=== PATIENT | male | born 1995 | race Hispanic/Latino ===

== ENCOUNTER 2018-03-21 04:18 | Emergency (ER) | payer MEDICAID ==
--- NOTE | 2018-03-21 04:53 | ED PDOC ---
Arrival/HPI - General Chief Complaint: Substance Abuse Time Seen by Provider: 03/21/18 04:19 Historian: Patient - History of Present Illness Narrative History of Present Illness (Text): 03/21/18 04:53 Ritesh Acevedo is a 22 year old male, whose past medical history includes substance abuse, who presents to the Emergency department requesting psychiatric evaluation. Patient states he came to the ER for "psych reasons" but will not specify upon further questioning. Patient denies any fever, chills , chest pain, shortness of breath, nausea, vomiting, diarrhea, urinary symptoms , back pain, neck pain, headache, dizziness, or any other complaints. Time/Duration: Other (tonight) Symptom Onset: Gradual Symptom Course: Unchanged Activities at Onset: Light Past Medical History - Provider Review Nursing Documentation Reviewed: Yes - Cardiac Hx Cardiac Disorders: No - Pulmonary Hx Respiratory Disorders: No - Neurological Hx Neurological Disorder: No - HEENT Hx HEENT Disorder: No - Renal Hx Renal Disorder: No - Endocrine/Metabolic Hx Endocrine Disorders: No - Hematological/Oncological Hx Blood Disorders: No - Integumentary Hx Dermatological Disorder: No - Musculoskeletal/Rheumatological Hx Musculoskeletal Disorders: No - Gastrointestinal Hx Gastrointestinal Disorders: No - Genitourinary/Gynecological Hx Genitourinary Disorders: No - Psychiatric Hx Psychophysiologic Disorder: Yes Hx Substance Use: Yes (daily) Family/Social History - Physician Review Nursing Documentation Reviewed: Yes Family/Social History: Unknown Family HX Smoking Status: Heavy Smoker > 10 Cigarettes Daily Hx Alcohol Use: No Hx Substance Use: Yes (daily) Substance used: heroin Allergies/Home Meds Allergies/Adverse Reactions: Allergies No Known Allergies Allergy (Verified 03/21/18 05:46) Home Medications: Home Meds Medication Instructions Recorded Confirmed Unobtainable 03/21/18 03/21/18 Review of Systems - Physician Review All systems were reviewed & negative as marked: Yes - Review of Systems Constitutional: Normal. absent: Fevers Eyes: Normal ENT: Normal Respiratory: Normal. absent: SOB, Cough Cardiovascular: Normal. absent: Chest Pain Gastrointestinal: Normal. absent: Abdominal Pain, Diarrhea, Nausea, Vomiting Genitourinary Male: Normal. absent: Dysuria, Frequency, Hematuria, Urinary Output Changes Musculoskeletal: Normal. absent: Back Pain, Neck Pain Skin: Normal. absent: Rash Neurological: Normal. absent: Headache, Dizziness Endocrine: Normal Hemo/Lymphatic: Normal Physical Exam Vital Signs Reviewed: Yes Vital Signs Temp Pulse Resp BP Pulse Ox 03/21/18 15:44 98.7 F 93 H 16 143/87 100 03/21/18 14:59 79 18 145/63 96 03/21/18 06:14 73 18 154/61 H 96 03/21/18 04:32 98.3 F 73 13 132/57 L 96 Temperature: Afebrile Blood Pressure: Normal Pulse: Regular Respiratory Rate: Normal Appearance: Positive for: Well-Appearing, Non-Toxic, Comfortable Pain Distress: None Mental Status: Positive for: Alert and Oriented X 3 - Systems Exam Head: Present: Atraumatic, Normocephalic Pupils: Present: PERRL Extroacular Muscles: Present: EOMI Conjunctiva: Present: Normal Mouth: Present: Moist Mucous Membranes Neck: Present: Normal Range of Motion Respiratory/Chest: Present: Clear to Auscultation, Good Air Exchange. No: Respiratory Distress, Accessory Muscle Use Cardiovascular: Present: Regular Rate and Rhythm, Normal S1, S2. No: Murmurs Abdomen: No: Tenderness, Distention, Peritoneal Signs Back: Present: Normal Inspection Upper Extremity: Present: Normal Inspection. No: Cyanosis, Edema Lower Extremity: Present: Normal Inspection. No: Edema Neurological: Present: GCS=15, CN II-XII Intact, Speech Normal Skin: Present: Warm, Dry, Normal Color. No: Rashes Psychiatric: Present: Alert, Oriented x 3, Normal Insight, Normal Concentration Medical Decision Making ED Course and Treatment: 03/21/18 04:53 Impression: 22 year old male requesting psychiatric evaluation tonight. Plan: -- EKG -- Chest X-ray -- Labs, alcohol level -- Urinalysis, urine drug screen -- Reassess and disposition Progress Notes: 03/21/18 05:23 Reviewed EKG, NSR at [address]-segment elevations or depressions, no T-wave inversions, normal intervals. - Lab Interpretations Lab Results: 03/21/18 05:15 03/21/18 05:15 Lab Results 03/21/18 13:30: Urine Opiates Screen Positive H, Urine Methadone Screen Negative , Ur Barbiturates Screen Negative, Ur Phencyclidine Scrn Negative, Ur Amphetamines Screen Negative, U Benzodiazepines Scrn Negative, U Oth Cocaine Metabols Positive H, U Cannabinoids Screen Negative 03/21/18 13:30: Urine Color Yellow, Urine Appearance Clear, Urine pH 6.0, Ur Specific [place] >= 1.030, Urine Protein Trace H, Urine Glucose (UA) Negative, Urine Ketones 40 H, Urine Blood Negative, Urine Nitrate Negative, Urine Bilirubin Negative, Urine Urobilinogen 0.2, Ur Leukocyte Esterase Negative, Urine RBC 0 - 2, Urine WBC 0 - 2, Ur Epithelial Cells 0 - 2, Urine Bacteria Neg 03/21/18 05:15: Alcohol, Quantitative < 10 03/21/18 05:15: Salicylates < 1 L, Acetaminophen < 10.0 L 03/21/18 05:15: Sodium 140, Potassium 3.9, Chloride 105, Carbon Dioxide 23, Anion Gap 17, BUN 19, Creatinine 0.9, Est GFR ( Amer) > 60, Est GFR (Non- Af Amer) > 60, Random Glucose 79, Calcium 9.4, Total Bilirubin 0.8, AST 53, ALT 59 H, Alkaline Phosphatase 75, Total Protein 7.2, Albumin 4.5, Globulin 2.8, Albumin/Globulin Ratio 1.6 03/21/18 05:15: WBC 9.8, RBC 5.08, Hgb 14.7, Hct 42.9, MCV 84.4, MCH 28.9, MCHC 34.3, RDW 12.7, Plt Count 199, MPV 10.3, Gran % 77.3 H, Lymph % (Auto) 13.5 L, [place] % (Auto) 6.2 H, Eos % (Auto) 2.7, Baso % (Auto) 0.3, Gran # 7.59 H, Lymph # (Auto) 1.3, [place] # (Auto) 0.6, Eos # (Auto) 0.3, Baso # (Auto) 0.03 I have reviewed the lab results: Yes - RAD Interpretation Radiology Orders: 03/21/18 04:57 CHEST PORTABLE [RAD] Stat - EKG Interpretation Interpreted by ED Physician: Yes Type: 12 lead EKG - Medication Orders Current Medication Orders: Discontinued Medications Naloxone HCl (Narcan) 0.8 mg IM STAT STA Stop: 03/21/18 05:35 Last Admin: 03/21/18 06:12 Dose: 0.8 mg IM Administration Charges Document 03/21/18 06:12 CNR (Rec: 03/21/18 06:13 CNR [id number]) Injection Site MAR Injection Site Right Vastus Lateralis Charges for Administration # of IM Administrations 1 - Transfer of Care Patient signed out to Dr:: naeem solitario - Scribe Statement The provider has reviewed the documentation as recorded by the Scribe Melissa Nieves Provider Scribe Attestation: All medical record entries made by the Scribe were at my direction and personally dictated by me. I have reviewed the chart and agree that the record accurately reflects my personal performance of the history, physical exam, medical decision making, and the department course for this patient. I have also personally directed, reviewed, and agree with the discharge instructions and disposition. Disposition/Present on Arrival - Present on Arrival Any Indicators Present on Arrival: No History of DVT/PE: No History of Uncontrolled Diabetes: No Urinary Catheter: No History of Decub. Ulcer: No History Surgical Site Infection Following: None - Disposition Have Diagnosis and Disposition been Completed?: Yes Diagnosis: Depression (emotion), Alcoholism Disposition: HOME/ ROUTINE Disposition Time: 07:00 Patient Problems: Current Active Problems Problem Status Onset Alcoholism Acute Depression (emotion) Acute Condition: GOOD Discharge Instructions (ExitCare): Depression, Adult (DC), Alcohol Abuse and Alcoholism (DC) Additional Instructions: Ritesh- Please follow the instructions the mental health worker gave you. Return to us if any problems. Best- Dr. Jp Lee
[2018-03-21 05:25] LABS: BASO # 0.03 K/mm3 (0.0-2.0); BASO % 0.3 % (0.0-3.0); EOS # 0.3 (0.0-0.7); EOS % 2.7 % (1.5-5.0); GRAN # 7.59 (1.4-6.5); GRAN % 77.3 % (50.0-68.0); HEMOGLOBIN 14.7 g/dL (14.0-18.0); LYMPH # 1.3 (1.2-3.4); LYMPH % 13.5 % (22.0-35.0); MEAN CELL VOLUME 84.4 fl (80.0-105.0); MEAN CORPUSCULAR HEMOGLOBIN 28.9 pg (25.0-35.0); MEAN CORPUSCULAR HGB CONC 34.3 g/dl (31.0-37.0); MEAN PLATELET VOLUME 10.3 fl (7.0-11.0); MONO # 0.6 (0.1-0.6); MONO % 6.2 % (1.0-6.0); RBC 5.08 10^6/uL (3.5-6.1); RED CELL DISTRIBUTION WIDTH 12.7 % (11.5-14.5); WHITE BLOOD COUNT 9.8 10^3/ul (4.5-11.0)
[2018-03-21] MEDS ORDERED: Naloxone 0.4 mg/ml Inj (Adult) IM STA (05:34)
[2018-03-21 05:38] LABS: ACETAMINOPHEN < 10.0 ug/ml (10.0-20.0); ALB/GLOB RATIO 1.6 (1.1-1.8); ALBUMIN 4.5 g/dL (3.0-4.8); ALT/SGPT 59 U/L (7-56); AST/SGOT 53 U/L (17-59); BLOOD UREA NITROGEN 19 mg/dL (7-21); CALCIUM 9.4 mg/dL (8.4-10.5); GFR AFRICAN-AMERICAN > 60; GFR NON-AFRICAN AMERICAN > 60; SALICYLATE < 1 mg/dL (2.0-20.0)
--- NOTE | 2018-03-21 08:57 | ED PDOC ---
Physical Exam Vital Signs Temp Pulse Resp BP Pulse Ox 03/21/18 14:59 79 18 145/63 96 03/21/18 06:14 73 18 154/61 H 96 03/21/18 04:32 98.3 F 73 13 132/57 L 96 Medical Decision Making ED Course and Treatment: 03/21/18 07:00 Patient signed out to me by Dr. Hong. Pending PES evaluation. Patient evaluated by PES, will go under Dr. Hui's service for major depression and alcohol withdrawal. 03/21/18 09:30 Reviewed radiology, Chest X-ray is normal. 03/21/18 15:24 PES were originally trying to find a place to send patient for detox, however they have changed their mind and have cleared patient to be discharged. Patient to be discharged for outpatient follow-up. - Lab Interpretations Lab Results: 03/21/18 05:15 03/21/18 05:15 Lab Results 03/21/18 13:30: Urine Opiates Screen Positive H, Urine Methadone Screen Negative , Ur Barbiturates Screen Negative, Ur Phencyclidine Scrn Negative, Ur Amphetamines Screen Negative, U Benzodiazepines Scrn Negative, U Oth Cocaine Metabols Positive H, U Cannabinoids Screen Negative 03/21/18 13:30: Urine Color Yellow, Urine Appearance Clear, Urine pH 6.0, Ur Specific [place] >= 1.030, Urine Protein Trace H, Urine Glucose (UA) Negative, Urine Ketones 40 H, Urine Blood Negative, Urine Nitrate Negative, Urine Bilirubin Negative, Urine Urobilinogen 0.2, Ur Leukocyte Esterase Negative, Urine RBC 0 - 2, Urine WBC 0 - 2, Ur Epithelial Cells 0 - 2, Urine Bacteria Neg 03/21/18 05:15: Alcohol, Quantitative < 10 03/21/18 05:15: Salicylates < 1 L, Acetaminophen < 10.0 L 03/21/18 05:15: Sodium 140, Potassium 3.9, Chloride 105, Carbon Dioxide 23, Anion Gap 17, BUN 19, Creatinine 0.9, Est GFR ( Amer) > 60, Est GFR (Non- Af Amer) > 60, Random Glucose 79, Calcium 9.4, Total Bilirubin 0.8, AST 53, ALT 59 H, Alkaline Phosphatase 75, Total Protein 7.2, Albumin 4.5, Globulin 2.8, Albumin/Globulin Ratio 1.6 03/21/18 05:15: WBC 9.8, RBC 5.08, Hgb 14.7, Hct 42.9, MCV 84.4, MCH 28.9, MCHC 34.3, RDW 12.7, Plt Count 199, MPV 10.3, Gran % 77.3 H, Lymph % (Auto) 13.5 L, [place] % (Auto) 6.2 H, Eos % (Auto) 2.7, Baso % (Auto) 0.3, Gran # 7.59 H, Lymph # (Auto) 1.3, [place] # (Auto) 0.6, Eos # (Auto) 0.3, Baso # (Auto) 0.03 I have reviewed the lab results: Yes - RAD Interpretation Radiology Orders: 03/21/18 04:57 CHEST PORTABLE [RAD] Stat - Medication Orders Current Medication Orders: Discontinued Medications Naloxone HCl (Narcan) 0.8 mg IM STAT STA Stop: 03/21/18 05:35 Last Admin: 03/21/18 06:12 Dose: 0.8 mg IM Administration Charges Document 03/21/18 06:12 CNR (Rec: 03/21/18 06:13 CNR [id number]) Injection Site MAR Injection Site Right Vastus Lateralis Charges for Administration # of IM Administrations 1 - Scribe Statement The provider has reviewed the documentation as recorded by the Marge Peterson Provider Scribe Attestation: All medical record entries made by the Scribe were at my direction and personally dictated by me. I have reviewed the chart and agree that the record accurately reflects my personal performance of the history, physical exam, medical decision making, and the department course for this patient. I have also personally directed, reviewed, and agree with the discharge instructions and disposition. Disposition/Present on Arrival - Present on Arrival Any Indicators Present on Arrival: No History of DVT/PE: No History of Uncontrolled Diabetes: No Urinary Catheter: No History of Decub. Ulcer: No History Surgical Site Infection Following: None - Disposition Have Diagnosis and Disposition been Completed?: Yes Diagnosis: Depression (emotion), Alcoholism Disposition: HOME/ ROUTINE Disposition Time: 15:30 Patient Plan: Discharge Condition: GOOD Discharge Instructions (ExitCare): Alcohol Abuse and Alcoholism (DC), Depression, Adult (DC) Additional Instructions: Ritesh- Please follow the instructions the mental health worker gave you. Return to us if any problems. Tavo- Dr. Jp Lee
--- NOTE | 2018-03-21 09:25 | RAD ---
HISTORY: pes COMPARISON: No prior. FINDINGS: LUNGS: No active pulmonary disease. PLEURA: No significant pleural effusion identified, no pneumothorax apparent. CARDIOVASCULAR: Normal. OSSEOUS STRUCTURES: No significant abnormalities. VISUALIZED UPPER ABDOMEN: Normal. OTHER FINDINGS: None. IMPRESSION: No active disease.
--- NOTE | 2018-03-21 10:55 | CARD ---
APPROVED REPORT EKG Measurement Heart [id number] <Conclusion> Normal sinus rhythm Normal ECG
[2018-03-21 13:57] LABS: URINE BILIRUBIN NEGATIVE (NEGATIVE); URINE BLOOD NEGATIVE (NEGATIVE); URINE GLUCOSE (UA) NEGATIVE (NEGATIVE); URINE LEUKOCYTE ESTERASE NEGATIVE Leu/uL (NEGATIVE); URINE PROTEIN TRACE mg/dL (<30 mg/dL); URINE UROBILINOGEN 0.2 E.U./dL (<1 E.U./dL)
[2018-03-21 13:59] LABS: URINE COLOR YELLOW (YELLOW)
[2018-03-21 14:00] LABS: URINE APPEARANCE CLEAR (CLEAR)
[2018-03-21 14:07] LABS: URINE BACTERIA NEG (NEG); URINE EPITHELIAL CELLS 0 - 2 /hpf (0-5); URINE RBC 0 - 2 /hpf (0-2); URINE WBC 0 - 2 /hpf (0-6)
[2018-03-21 14:18] LABS: BARBITURATES, UR NEGATIVE (NEGATIVE)
[2018-03-21 14:36] LABS: BENZODIAZEPINES, UR NEGATIVE (NEGATIVE); OPIATES, UR POSITIVE (NEGATIVE); PHENCYCLIDINE, UR NEGATIVE (NEGATIVE)
[2018-03-21 15:46] VITALS: BP 143/87; PULSE 93; RESP 16; TEMP 98.7; O2SAT 100
== END 2018-03-21 15:50 | disposition home or self-care (01) ==
LOC: ED 04:18 → UNDOADMIN 08:32 → ERH 08:32 → ED 15:50
DX: F32.9 Major depressive disorder, single episode, unspecified (principal); F10.20 Alcohol dependence, uncomplicated; Y90.0 Blood alcohol level of less than 20 mg/100 ml; F19.10 Other psychoactive substance abuse, uncomplicated
CPT/HCPCS: 71045; 80053; 80320; 80324; 80329; 80345; 80346; 80349; 80353; 80358; 80361; 81001; 83992; 85025; 90791; 93005; 96372; 99283; J2310

== ENCOUNTER 2018-09-08 02:52 | Emergency (ER) | payer SELFPAY ==
[2018-09-08 02:59] VITALS: BMI 28.2
[2018-09-08] MEDS ORDERED: Sodium Chloride 0.9% 1,000 ML IV STA ×2 (03:02→09:47)
--- NOTE | 2018-09-08 03:09 | ED PDOC ---
Arrival/HPI - General Chief Complaint: Abdominal Pain Time Seen by Provider: 09/08/18 02:53 Historian: Patient - History of Present Illness Narrative History of Present Illness (Text): 09/08/18 03:06 23 year old male, whose past medical history includes alcohol abuse and depression, presents to the emergency department via EMS for evaluation of abdominal pain reported one hour prior to arrival. Patient is a poor historian. He admits to cocaine use tonight, but denies nay other drug use. Patient denies any fever, chills, chest pain, shortness of breath, nausea, vomiting, diarrhea, urinary symptoms, back pain, neck pain, headache, dizziness, or any other complaints. Time/Duration: Prior to Arrival, 1 hour Symptom Onset: Sudden Symptom Course: Unchanged Activities at Onset: Light Past Medical History - Provider Review Nursing Documentation Reviewed: Yes - Cardiac Hx Cardiac Disorders: No - Pulmonary Hx Respiratory Disorders: No - Neurological Hx Neurological Disorder: No - HEENT Hx HEENT Disorder: No - Renal Hx Renal Disorder: No - Endocrine/Metabolic Hx Endocrine Disorders: No - Hematological/Oncological Hx Blood Disorders: Yes - Integumentary Hx Dermatological Disorder: No - Musculoskeletal/Rheumatological Hx Musculoskeletal Disorders: No - Gastrointestinal Hx Gastrointestinal Disorders: No - Genitourinary/Gynecological Hx Genitourinary Disorders: No - Psychiatric Hx Psychophysiologic Disorder: Yes Hx Substance Use: Yes (daily) Other/Comment: Multiple Substance Abuse Family/Social History - Physician Review Nursing Documentation Reviewed: Yes Family/Social History: No Known Family HX Smoking Status: Heavy Smoker > 10 Cigarettes Daily Hx Alcohol Use: Yes Frequency of alcohol use: Socially Hx Substance Use: Yes (daily) Substance used: heroin, marijuana, coccaine Allergies/Home Meds Allergies/Adverse Reactions: Allergies No Known Allergies Allergy (Verified 03/21/18 05:46) Review of Systems - Physician Review All systems were reviewed & negative as marked: Yes - Review of Systems Constitutional: absent: Fevers, Other (Chills) Respiratory: absent: SOB Cardiovascular: absent: Chest Pain Gastrointestinal: Abdominal Pain. absent: Diarrhea, Nausea, Vomiting Genitourinary Male: absent: Dysuria, Frequency, Hematuria Musculoskeletal: absent: Back Pain, Neck Pain Neurological: absent: Headache, Dizziness Physical Exam Vital Signs Reviewed: Yes Vital Signs Temp Pulse Resp BP Pulse Ox 09/08/18 02:55 99.0 F 102 H 20 154/84 H 98 Temperature: Afebrile Blood Pressure: Hypertensive Pulse: Tachycardic Respiratory Rate: Normal Appearance: Positive for: Well-Appearing, Non-Toxic, Comfortable Pain Distress: None Mental Status: Positive for: Alert and Oriented X 3 - Systems Exam Head: Present: Atraumatic, Normocephalic Pupils: Present: PERRL Extroacular Muscles: Present: EOMI Conjunctiva: Present: Normal Mouth: Present: Moist Mucous Membranes Neck: Present: Normal Range of Motion Respiratory/Chest: Present: Clear to Auscultation, Good Air Exchange. No: Respiratory Distress, Accessory Muscle Use Cardiovascular: Present: Regular Rate and Rhythm, Normal S1, S2. No: Murmurs Abdomen: Present: Tenderness (Epigastric tenderness). No: Distention, Peritoneal Signs Back: Present: Normal Inspection Upper Extremity: Present: Normal Inspection. No: Cyanosis, Edema Lower Extremity: Present: Normal Inspection. No: Edema Neurological: Present: GCS=15, CN II-XII Intact, Speech Normal Skin: Present: Warm, Dry, Normal Color. No: Rashes Psychiatric: Present: Alert, Oriented x 3, Normal Insight, Normal Concentration Medical Decision Making ED Course and Treatment: 09/08/18 03:12 Impression: 23 year old male presents complaining of abdominal pain 1 hour prior to arrival.pt intermittantly somulalent, suspect secondary toxidrome Plan: -- Labs -- Chest X-Ray -- Protonix Inj, IV fluids, Zofran -- Urinalysis -- Reassess and disposition Prior Visits: Notes and results from previous visits were reviewed. Progress Notes: 09/08/18 04:22 CXR Impression: As read by me, no acute disease 09/11/18 07:29 lab neg. endorserd to day shift pending ct abd/pelvis, reassess final dispo - Lab Interpretations I have reviewed the lab results: Yes - RAD Interpretation Radiology Orders: 09/08/18 03:02 CHEST PORTABLE [RAD] Stat - Medication Orders Current Medication Orders: Sodium Chloride (Sodium Chloride 0.9%) 1,000 mls @ 999 mls/hr IV .Q1H1M STA Stop: 09/08/18 04:02 Discontinued Medications Ondansetron HCl (Zofran Inj) 4 mg IVP STAT STA Stop: 10/13/18 03:03 Pantoprazole Sodium (Protonix Inj) 40 mg IVP STAT STA Stop: 09/08/18 03:03 - Scribe Statement The provider has reviewed the documentation as recorded by the Marge Turner Provider Marge Attestation: All medical record entries made by the Scribe were at my direction and personally dictated by me. I have reviewed the chart and agree that the record accurately reflects my personal performance of the history, physical exam, medical decision making, and the department course for this patient. I have also personally directed, reviewed, and agree with the discharge instructions and disposition. Disposition/Present on Arrival - Present on Arrival Any Indicators Present on Arrival: No History of DVT/PE: No History of Uncontrolled Diabetes: No Urinary Catheter: No History of Decub. Ulcer: No History Surgical Site Infection Following: None - Disposition Have Diagnosis and Disposition been Completed?: Yes Diagnosis: Mesenteric adenitis Disposition: HOME/ ROUTINE Disposition Time: 07:00 Condition: STABLE Discharge Instructions (ExitCare): Mesenteric Lymphadenitis (DC) Prescriptions: RX: Ibuprofen [Motrin Tab] 600 mg PO Q6H PRN 6 Days #24 tab PRN Reason: Pain, Moderate (4-7) Forms: [facility] (Malagasy)
[2018-09-08 03:49] LABS: BASO # 0.01 K/mm3 (0.0-2.0); BASO % 0.1 % (0.0-3.0); EOS # 0.1 (0.0-0.7); EOS % 1.5 % (1.5-5.0); GRAN # 3.95 (1.4-6.5); GRAN % 58.3 % (50.0-68.0); LYMPH # 1.7 (1.2-3.4); LYMPH % 25.1 % (22.0-35.0); MEAN CELL VOLUME 84.4 fl (80.0-105.0); MEAN CORPUSCULAR HEMOGLOBIN 29.5 pg (25.0-35.0); MEAN PLATELET VOLUME 10.3 fl (7.0-11.0); RBC 4.74 10^6/uL (3.5-6.1); RED CELL DISTRIBUTION WIDTH 13.2 % (11.5-14.5); WHITE BLOOD COUNT 6.8 10^3/ul (4.5-11.0)
[2018-09-08 03:50] LABS: INR 1.17; PROTHROMBIN TIME 13.4 SECONDS (9.4-12.5)
[2018-09-08 04:00] LABS: ALB/GLOB RATIO 1.4 (1.1-1.8); ALBUMIN 4.3 g/dL (3.0-4.8); ALT/SGPT 68 U/L (7-56); AST/SGOT 60 U/L (17-59); BLOOD UREA NITROGEN 19 mg/dL (7-21); GFR NON-AFRICAN AMERICAN > 60; LIPASE 31 U/L (23-300)
[2018-09-08 04:01] LABS: ACETAMINOPHEN < 10.0 ug/ml (10.0-20.0); SALICYLATE < 1 mg/dL (2.0-20.0)
[2018-09-08 04:25] LABS: CK MB% 0.6 % (2.5-3.0); CK-MB 6.6 ng/mL (0.0-3.6)
--- NOTE | 2018-09-08 07:01 | ED PDOC ---
Physical Exam Vital Signs Reviewed: Yes Vital Signs Temp Pulse Resp BP Pulse Ox 09/08/18 05:47 98.9 F 73 20 126/64 100 09/08/18 02:55 99.0 F 102 H 20 154/84 H 98 Temperature: Afebrile Blood Pressure: Hypertensive Pulse: Tachycardic Respiratory Rate: Normal Appearance: Positive for: Well-Appearing, Non-Toxic, Comfortable Pain Distress: None Mental Status: Positive for: Alert and Oriented X 3 - Systems Exam Head: Present: Atraumatic, Normocephalic Pupils: Present: PERRL Extroacular Muscles: Present: EOMI Conjunctiva: Present: Normal Mouth: Present: Moist Mucous Membranes Neck: Present: Normal Range of Motion Respiratory/Chest: Present: Clear to Auscultation, Good Air Exchange. No: Respiratory Distress, Accessory Muscle Use Cardiovascular: Present: Regular Rate and Rhythm, Normal S1, S2. No: Murmurs Abdomen: Present: Tenderness (epigastric tenderness). No: Distention, Pe ritoneal Signs Back: Present: Normal Inspection Upper Extremity: Present: Normal Inspection. No: Cyanosis, Edema Lower Extremity: Present: Normal Inspection. No: Edema Neurological: Present: GCS=15, CN II-XII Intact, Speech Normal Skin: Present: Warm, Dry, Normal Color. No: Rashes Psychiatric: Present: Alert, Oriented x 3, Normal Insight, Normal Concentration Medical Decision Making ED Course and Treatment: 09/08/18 07:[address] Kim pending CT a/p 09/08/18 10:14. CT a/p reveals mesenteric adenitis. Patient noted to be intermittently stuporous on initial exam and is fully aroused after being given Narcan. Toradol ordered. Patient alerted and stable for discharge. He feels better and encouraged to follow up with his PCP. - Lab Interpretations Lab Results: 09/08/18 03:00 09/08/18 03:00 Lab Results 09/08/18 03:00: PT 13.4 H, INR 1.17, APTT 26.0 09/08/18 03:00: Alcohol, Quantitative < 10 09/08/18 03:00: Salicylates < 1 L, Acetaminophen < 10.0 L 09/08/18 03:00: Sodium 137, Potassium 3.9, Chloride 102, Carbon Dioxide 25, Anion Gap 13, BUN 19, Creatinine 1.0, Est GFR ( Amer) > 60, Est GFR (Non- Af Amer) > 60, Random Glucose 84, Calcium 9.0, Magnesium 2.0, Total Bilirubin 1.2, AST 60 H, ALT 68 H, Alkaline Phosphatase 73, Total Creatine Kinase 1034 H, CK-MB (CK-2) 6.6 H, CK-MB (CK-2) % 0.6 L, Total Protein 7.5, Albumin 4.3, Gl obulin 3.1, Albumin/Globulin Ratio 1.4, Lipase 31 09/08/18 03:00: WBC 6.8 D, RBC 4.74, Hgb 14.0, Hct 40.0 L, MCV 84.4, MCH 29.5, MCHC 35.0, RDW 13.2, Plt Count 165, MPV 10.3, Gran % 58.3, Lymph % (Auto) 25.1, [place] % (Auto) 15.0 H, Eos % (Auto) 1.5, Baso % (Auto) 0.1, Gran # 3.95, Lymph # (Auto) 1.7, [place] # (Auto) 1.0 H, Eos # (Auto) 0.1, Baso # (Auto) 0.01 - RAD Interpretation Narrative RAD Interpretations (Text): 09/08/18 09:19 CT Abdomen/Pelvis reviewed, shows: IMPRESSION: Findings consistent with nonspecific mesenteric adenitis. Mild splenomegaly. Possible developing left lower lobe infiltrate. There is extensive nonspecific small airways disease in the left lower lobe. No additional abnormality. 09/08/18 11:24 Chest X-ray reviewed shows: IMPRESSION: No active disease. Radiology Orders: 09/08/18 03:02 CHEST PORTABLE [RAD] Stat 09/08/18 04:05 ABD & PELVIS IV CONTRAST ONLY [CT] Stat - Medication Orders Current Medication Orders: Discontinued Medications Sodium Chloride (Sodium Chloride 0.9%) 1,000 mls @ 999 mls/hr IV .Q1H1M STA Stop: 09/08/18 04:02 Last Admin: 09/08/18 03:16 Dose: 999 mls/hr eMAR Start Stop Document 09/08/18 03:16 OCS (Rec: 09/08/18 03:17 OCS [id number]) Intravenous Solution Start Date 09/08/18 Start Time 03:16 End Date 09/08/18 End time 04:17 Total Infusion Time 61 Ondansetron HCl (Zofran Inj) 4 mg IVP STAT STA Stop: 09/08/18 03:03 Last Admin: 09/08/18 03:17 Dose: 4 mg IVP Administration Document 09/08/18 03:17 OCS (Rec: 09/08/18 03:17 OCS [id number]) Charges for Administration # of IVP Administrations 1 Pantoprazole Sodium (Protonix Inj) 40 mg IVP STAT STA Stop: 09/08/18 03:03 Last Admin: 09/08/18 03:17 Dose: 40 mg IVP Administration Document 09/08/18 03:17 OCS (Rec: 09/08/18 03:17 OCS [id number]) Charges for Administration # of IVP Administrations 1 Disposition/Present on Arrival - Present on Arrival Any Indicators Present on Arrival: No History of DVT/PE: No History of Uncontrolled Diabetes: No Urinary Catheter: No History of Decub. Ulcer: No History Surgical Site Infection Following: None - Disposition Have Diagnosis and Disposition been Completed?: Yes Diagnosis: Mesenteric adenitis Disposition: HOME/ ROUTINE Disposition Time: 10:17 Patient Plan: Discharge Condition: STABLE Discharge Instructions (ExitCare): Mesenteric Lymphadenitis (DC) Prescriptions: RX: Ibuprofen [Motrin Tab] 600 mg PO Q6H PRN 6 Days #24 tab PRN Reason: Pain, Moderate (4-7) Forms: [facility] (Slovak)
[2018-09-08] MEDS ORDERED: Iohexol 350 MG/100 ML VIAL ONE (07:53)
--- NOTE | 2018-09-08 09:05 | CT ---
Date of service: 09/08/2018 PROCEDURE: CT Abdomen and Pelvis with contrast HISTORY: diffuse abd pain COMPARISON: None. TECHNIQUE: Contrast dose: 100 mL Omnipaque 350 Radiation dose: Total exam DLP = 668.33 mGy-cm. This CT exam was performed using one or more of the following dose reduction techniques: Automated exposure control, adjustment of the mA and/or kV according to patient size, and/or use of iterative reconstruction technique. FINDINGS: LOWER THORAX: Extensive nonspecific small airways disease in left lower lobe. Possible developing pneumonia. LIVER: Unremarkable. No gross lesion or ductal dilatation. GALLBLADDER AND BILE DUCTS: Unremarkable. PANCREAS: Unremarkable. No gross lesion or ductal dilatation. SPLEEN: Splenomegaly. The spleen measures 17.0 cm in greatest dimension. No focal mass. ADRENALS: Unremarkable. No mass. KIDNEYS AND URETERS: Unremarkable. No hydronephrosis. No solid mass. VASCULATURE: Unremarkable. No aortic aneurysm. BOWEL: Unremarkable. No obstruction. No gross mural thickening. APPENDIX: Normal appendix. PERITONEUM: Unremarkable. No free fluid. No free air. LYMPH NODES: Shotty subcentimeter lymph nodes are seen throughout the small bowel mesenteric as well as medial to the cecum/ascending colon. Findings consistent with nonspecific mesenteric adenitis. No retroperitoneal or pelvic lymphadenopathy is appreciated. BLADDER: Unremarkable. REPRODUCTIVE: Normal prostate BONES: No acute fracture. OTHER FINDINGS: None. IMPRESSION: Findings consistent with nonspecific mesenteric adenitis. Mild splenomegaly. Possible developing left lower lobe infiltrate. There is extensive nonspecific small airways disease in the left lower lobe. No additional abnormality.
[2018-09-08] MEDS ORDERED: Naloxone 0.4 mg/ml Inj (Adult) IVP ONE (09:30)
[2018-09-08 09:58] VITALS: TEMP 98
[2018-09-08 10:04] LABS: URINE BILIRUBIN NEGATIVE (NEGATIVE); URINE BLOOD NEGATIVE (NEGATIVE); URINE GLUCOSE (UA) NEGATIVE (NEGATIVE); URINE LEUKOCYTE ESTERASE NEGATIVE Leu/uL (NEGATIVE); URINE PROTEIN TRACE mg/dL (<30 mg/dL); URINE UROBILINOGEN 0.2 E.U./dL (<1 E.U./dL)
[2018-09-08 10:09] LABS: URINE APPEARANCE CLEAR (CLEAR); URINE COLOR YELLOW (YELLOW)
[2018-09-08 10:17] LABS: BARBITURATES, UR NEGATIVE (NEGATIVE); URINE EPITHELIAL CELLS 0 - 2 /hpf (0-5); URINE RBC 0 - 2 /hpf (0-2); URINE WBC 0 - 2 /hpf (0-6)
[2018-09-08 10:18] LABS: BENZODIAZEPINES, UR NEGATIVE (NEGATIVE); OPIATES, UR POSITIVE (NEGATIVE); PHENCYCLIDINE, UR NEGATIVE (NEGATIVE)
--- NOTE | 2018-09-08 11:18 | RAD ---
Date of service: 09/08/2018 HISTORY: abd pain COMPARISON: 03/21/2018 FINDINGS: LUNGS: No active pulmonary disease. PLEURA: No significant pleural effusion identified, no pneumothorax apparent. CARDIOVASCULAR: Normal. OSSEOUS STRUCTURES: No significant abnormalities. VISUALIZED UPPER ABDOMEN: Normal. OTHER FINDINGS: None. IMPRESSION: No active disease.
[2018-09-08 14:04] VITALS: BP 124/53; PULSE 89; RESP 19; O2SAT 99
== END 2018-09-08 14:03 | disposition home or self-care (01) ==
LOC: ED 02:52
DX: I88.0 Nonspecific mesenteric lymphadenitis (principal); F19.10 Other psychoactive substance abuse, uncomplicated
CPT/HCPCS: 71045; 74177; 80053; 81001; 82550; 82553; 82948; 83690; 83735; 85025; 85610; 85730; 96361; 96374; 96375; 99285; C9113; G0480; J1885; J2310; J2405; J7030; Q9967